=== PATIENT | male | born 1945 | race Caucasian/White ===

== ENCOUNTER → 2017-01-07 09:12 | Outpatient (CLI) | payer MEDICARE, OTHER ==
--- NOTE | 2017-01-21 16:56 | EC ---
PATIENT:NICOLE GODWIN DATE OF SERVICE: 01/07/17 SEX: M MEDICAL RECORD: [id number] DATE OF : 49 LOCATION:D.[facility] AGE OF PATIENT: 71 ADMISSION DATE: 01/07/17 REFERRING PHYSICIAN: INTERPRETING PHYSICIAN: IZABEL ALTAMIRANO MD ECHOCARDIOGRAM REPORT ECHO CHARGES 4 ECHO COMPLETE CLINICAL DIAGNOSIS: DIZZINESS HX OF HTN ECHOCARDIOGRAPHIC MEASUREMENTS (adult normal given) AC root (d.<3.7cm) 3.2 cm LV Septum d (<1.2 cm> 1.2 cm Valve Excursion 1.1 cm LV Septum (systole) 1.7 cm Left Atria (s.<4.0cm> 3.5 cm LVPW d(<1.2cm) 1.2 cm RV (d.<2.3cm) 4.3 cm LVPW (sytole) 1.6 cm LV diastole(<5.6CM) 5.3 cm MV E-F(>70mm/sec) cm LV systole 3.5 cm LVOT Diameter 2.0 cm MV exc.(>10mm) 1.0 cm Est.ejection fraction (50-75%) % Pericardial Effusion N DOPPLER: LVIT cm/sec A 95.0 cm/sec E 75.0 cm/sec LA cm/sec RVSP 22 mmHg LVOT 121 cm/sec AOP1/2T m/s Asc. Ao 166 cm/sec RVOT 76 cm/sec RA cm/sec PA 110 cm/sec AV Gradient Peak 11.07mmHg AV Mean 5.16 mmHg AV Area 2.6 cm MV Gradient Peak 4.67 mmHg MV Mean 1.84 mmHg MV Area cm COMMENTS: Cell Coverer: Murtaza WELLS Makeup Instructor: 1 Dr. Altamirano TAPE# PACS DATE OF SERVICE: 01/07/2017 FINDINGS: 1. Left ventricle chamber size is within normal limits. Left ventricular systolic function is normal. Overall ejection fraction estimated at 60%. 2. Left atrium is within normal limits at 3.5 cm. Right atrium and right ventricle chamber sizes are mildly dilated. 3. Valvular structures have normal structure and motion. 4. Doppler interrogation reveals mild mitral regurgitation, mild tricuspid regurgitation, no other valvular insufficiency or stenosis. Pulmonary systolic ECHOCARDIOGRAM REPORT [id number] NICOLE GODWIN pressure is normal estimated 22 mmHg. 5. No evidence of pericardial effusion or left ventricular thrombus. TRANSINT:[id number] Voice Confirmation ID: [id number] DOCUMENT ID: [id number] IZABEL ALTAMIRANO MD at 1656 CC: [id number] DICTATION DATE: 01/07/17 1135 CHIEF OF HARBOR PATROL: 01/07/17 1201 DEP CLI 01/07/17 [place] [id number] [place] [id number]
== END | disposition home or self-care (01) ==
LOC: D.ECHO 12-28 13:30
DX: R42 Dizziness and giddiness (principal)

== ENCOUNTER 2020-01-11 20:21 | Observation (INO) | payer MEDICARE, OTHER ==
[~2020-01-11] VITALS: Ht 180.3 cm; Wt 90.0 kg
[2020-01-11 21:36] VITALS: BP 154/97
[2020-01-11 21:39] LABS: BASOPHILS 0.2 % (0-2); EOSINOPHILS 3.5 % (0-7); HEMATOCRIT 39.6 % (42.0-54.0); HEMOGLOBIN 12.7 g/dL (13.5-17.5); IMMATURE GRANULOCYTES 0.3 % (0-5); LYMPHOCYTES 21.9 % (15-50); MCH 28.4 pg (26.0-34.0); MCHC 32.1 g/dL (31.0-37.0); MCV 88.6 fL (80.0-100.0); MEAN PLATELET VOLUME 10.8 fL (7.4-10.4); MONOCYTES 7.7 % (2-11); NEUTROPHILS 66.4 % (40-80); PLATELET COUNT 215 10x3/uL (130-400); RBC 4.47 10x6/uL (4.20-6.10); RDW 14.6 % (11.5-14.5); WBC 6.1 10x3/uL (4.8-10.8)
[2020-01-11 21:46] LABS: CALC OSMOLALITY 270 mosm/kg (275-300); CALCIUM 9.2 mg/dL (8.5-10.1); CARBON DIOXIDE 25.5 mmol/L (21.0-32.0); CHLORIDE - SERUM 101 mmol/L (98-107); CREATININE - SERUM 1.1 mg/dL (0.6-1.3); GLUCOSE 84 mg/dL (74-106); POTASSIUM - SERUM 5.3 mmol/L (3.5-5.1); SODIUM 136 mmol/L (136-145); UREA NITROGEN 13 mg/dL (7-18); eGFR NON AFRICAN AMERICAN 70 mL/min (90-120)
[2020-01-11 21:49] LABS: APTT 25.8 SECONDS (22.8-39.4); INR 0.98 (0.85-1.17); PROTIME 12.9 SECONDS (11.6-15.0)
[2020-01-11 22:02] LABS: ALBUMIN 3.5 g/dL (3.4-5.0); ALKALINE PHOSPHATASE 87 U/L (30-120); ALT (SGPT) 10 U/L (10-68); BILIRUBIN - TOTAL 0.51 mg/dL (0.2-1.3); CKMB 0.6 U/L (0.0-3.6); CREATINE KINASE 161 UL (21-232); MAGNESIUM - SERUM 2.1 mg/dL (1.8-2.4)
[2020-01-11 22:04] LABS: TROPONIN-I < 0.017 ng/mL (0.000-0.060)
--- NOTE | 2020-01-11 23:16 | NUR ---
PT TO RADIOLOGY
--- NOTE | 2020-01-11 23:29 | NUR ---
PT RETURNED FROM RADIOLOGY.
[2020-01-12] VITALS (7 sets, daily range): BP systolic 133–155; BP diastolic 69–95; Ht 180.3 cm; Wt 90.0 kg
--- NOTE | 2020-01-12 01:36 | NUR ---
PT GIVEN BLANKET AND HEAD OF BED ADJUSTED TO LEVEL OF COMFORT. DENIES FURTHER NEEDS AT THIS TIME. PT ON MONITOR. CALL LIGHT IN REACH.
[2020-01-12 02:52] LABS: CKMB 0.5 U/L (0.0-3.6); CREATINE KINASE 68 UL (21-232)
[2020-01-12 02:56] LABS: TROPONIN-I < 0.017 ng/mL (0.000-0.060)
--- NOTE | 2020-01-12 03:47 | NUR ---
PT AMBULATED TO RESTROOM INDEPENDENTLY.
--- NOTE | 2020-01-12 04:19 | NUR ---
PT CLOTH FEEDER LIGHT, PT GIVEN CLEAN BRIEF TO PUT ON. DENIES FURTHER NEEDS AT THIS TIME. CALL LIGHT IN REACH.
--- NOTE | 2020-01-12 05:22 | NUR ---
PT AMBULATED TO RESTROOM INDEPENDENTLY.
--- NOTE | 2020-01-12 07:25 | NUR ---
PT REPORT PT FROM SAROJ ALMONTE
[2020-01-12 08:39] LABS: BASOPHILS 0.2 % (0-2); EOSINOPHILS 4.1 % (0-7); HEMATOCRIT 35.8 % (42.0-54.0); HEMOGLOBIN 11.5 g/dL (13.5-17.5); IMMATURE GRANULOCYTES 0.2 % (0-5); MCH 28.3 pg (26.0-34.0); MCHC 32.1 g/dL (31.0-37.0); MEAN PLATELET VOLUME 10.4 fL (7.4-10.4); MONOCYTES 6.7 % (2-11); NEUTROPHILS 68.8 % (40-80); PLATELET COUNT 191 10x3/uL (130-400); RBC 4.07 10x6/uL (4.20-6.10); RDW 14.4 % (11.5-14.5); WBC 4.9 10x3/uL (4.8-10.8)
[2020-01-12 08:49] LABS: % SATURATION 30 % (15-55); IRON 65 ug/dl (35-150); TOTAL IRON BIND CAPACITY 212 ug/dl (260-445); UNSAT IRON BIND CAPACITY 147 ug/dl (150-375)
[2020-01-12 09:13] LABS: CALC OSMOLALITY 275 mosm/kg (275-300); CALCIUM 8.5 mg/dL (8.5-10.1); CARBON DIOXIDE 25.9 mmol/L (21.0-32.0); CHLORIDE - SERUM 105 mmol/L (98-107); CHOL - HDL RATIO 2.6 ratio (2.3-4.9); CHOLESTEROL, TOTAL 134 mg/dL (0-200); CKMB 0.6 U/L (0.0-3.6); CREATINE KINASE 59 UL (21-232); CREATININE - SERUM 1.1 mg/dL (0.6-1.3); FERRITIN 423 ng/mL (3-244); GLUCOSE 87 mg/dL (74-106); HDL CHOLESTEROL 52 mg/dL (32-96); LDH 139 U/L (85-227); LDL CHOLESTEROL 70 mg/dL (0-100); LDL-HDL RATIO 1.3 ratio (1.5-3.5); MAGNESIUM - SERUM 1.8 mg/dL (1.8-2.4); PHOSPHOROUS 2.5 mg/dL (2.5-4.9); PRO BNP 201 pg/mL (0-125); SODIUM 139 mmol/L (136-145); TRIGLYCERIDE 61 mg/dL (30-200); TROPONIN-I < 0.017 ng/mL (0.000-0.060); UREA NITROGEN 10 mg/dL (7-18); eGFR NON AFRICAN AMERICAN 70 mL/min (90-120)
[2020-01-12 09:14] LABS: POTASSIUM - SERUM 3.6 mmol/L (3.5-5.1)
[2020-01-12] MEDS ORDERED: K-DUR20 MEQ PO (09:57)
[2020-01-12] MEDS ORDERED: LISINOPRIL20 MG PO (09:57)
[2020-01-12] MEDS ORDERED: BAYER CHEWABLE81 MG PO (09:57)
[2020-01-12 13:28] LABS: CKMB 0.3 U/L (0.0-3.6); CREATINE KINASE 59 UL (21-232)
[2020-01-12 13:29] LABS: TROPONIN-I < 0.017 ng/mL (0.000-0.060)
--- NOTE | 2020-01-12 17:11 | NUR ---
RECEIVED PT TO ROOM VIA WHEELCHAIR, PT A/O X4, RESP EVEN AND NONLABORED ON RA. LT AC INFUSING NS AT 75CC/HR. PT DENIES ANY PAIN AT THIS TIME. ORIENTED PT TO ROOM AND CALL LIGHT, WILL ASSESS PT AND START PLAN OF CARE.
--- NOTE | 2020-01-12 20:00 | NUR ---
INITIAL ROUNDS AND ASSESSMENT COMPLETED. PT RESTING IN BED. NONLABORED RESPIRATIONS ON ROOM AIR. SR PER TELEMETRY. PIV TO LEFT A/C WITH NS @ 75ML/HR INFUSING. REQUESTED O2 @ 2L/NC BE HOOKED UP FOR WHEN HE IS FEELING SOB. O2 NOW AT BEDSIDE FOR HIS USE. CALL LIGHT IN REACH. CPOC.
[2020-01-13 00:30] VITALS: BP 142/83
--- NOTE | 2020-01-13 01:44 | NUR ---
IV PROTONIX ADMINISTERED. PT RESTING WITH NO DISTRESS. CPOC.
[2020-01-13 04:30] VITALS: BP 159/87
[2020-01-13 05:28] LABS: BASOPHILS 0.2 % (0-2); EOSINOPHILS 3.9 % (0-7); HEMATOCRIT 37.8 % (42.0-54.0); HEMOGLOBIN 11.8 g/dL (13.5-17.5); IMMATURE GRANULOCYTES 0.4 % (0-5); MCH 27.9 pg (26.0-34.0); MCHC 31.2 g/dL (31.0-37.0); MCV 89.4 fL (80.0-100.0); MEAN PLATELET VOLUME 10.5 fL (7.4-10.4); MONOCYTES 8.1 % (2-11); NEUTROPHILS 67.4 % (40-80); PLATELET COUNT 191 10x3/uL (130-400); RBC 4.23 10x6/uL (4.20-6.10); RDW 14.7 % (11.5-14.5); WBC 5.4 10x3/uL (4.8-10.8)
[2020-01-13 05:55] LABS: CALC OSMOLALITY 280 mosm/kg (275-300); CALCIUM 8.5 mg/dL (8.5-10.1); CARBON DIOXIDE 27.3 mmol/L (21.0-32.0); CHLORIDE - SERUM 107 mmol/L (98-107); GLUCOSE 93 mg/dL (74-106); MAGNESIUM - SERUM 2.1 mg/dL (1.8-2.4); POTASSIUM - SERUM 3.5 mmol/L (3.5-5.1); SODIUM 142 mmol/L (136-145); UREA NITROGEN 8 mg/dL (7-18); eGFR NON AFRICAN AMERICAN 78 mL/min (90-120)
[2020-01-13 05:56] LABS: PHOSPHOROUS 3.3 mg/dL (2.5-4.9)
[2020-01-13 08:34] VITALS: BP 143/74
--- NOTE | 2020-01-13 09:16 | NUR ---
AM MEDS GIVEN AT THIS TIME. WENT OVER PLAN OF CARE WITH PT, DENIES ANY NEEDS AT THIS TIME. PT A/O X4, RESP EVEN AND NONLABORED ON RA. LT AC IV INFUSING NS AT 75CC/HR. CALL LIGHT IN REACH, WILL CONTINUE PLAN OF CARE.
--- NOTE | 2020-01-13 09:32 | NUR ---
UPDATED PT'S , ABOUT PLAN OF CARE.
[2020-01-13 12:11] VITALS: BP 135/77
[2020-01-13] MEDS ORDERED: MUCINEX600 MG PO (12:19)
[2020-01-13] MEDS ORDERED: LISINOPRIL10 MG PO (12:19)
[2020-01-13] MEDS ORDERED: TESSALON PERLE100 MG PO (12:19)
--- NOTE | 2020-01-13 14:06 | NUR ---
PROVIDED VERBAL AND WRITTEN DISCHARGE TEACHING TO PT WHO VERBALIZED UNDERSTANDING REGARDING TEACHING. D/C LT AC IV WITH CATHETER TIP INTACT. HEART MONITOR REMOVED AND TAKEN TO SALVAGE REPAIRER. PT LEFT UNIT VIA WHEELCHAIR, WITH CALL BELONGINGS, NAD NOTED.
== END 2020-01-13 14:14 | disposition home or self-care (01) ==
LOC: D.ER 20:21 → D.EDHOLD 01-12 03:32 → OBSVTIME 01-12 03:32 → D.EDHOLD 01-12 03:32 → D.M2 01-12 03:32
PROVIDERS: Family Medicine; ADMIT Family Medicine; ATTEND Family Medicine
DX: R55 Syncope and collapse (principal); R07.9 Chest pain, unspecified; I10 Essential (primary) hypertension; D64.9 Anemia, unspecified; K59.00 Constipation, unspecified; J98.11 Atelectasis; R00.1 Bradycardia, unspecified

== ENCOUNTER 2020-01-16 21:58 | Emergency (ER) | payer MEDICARE, OTHER ==
[~2020-01-16] VITALS: Ht 180.3 cm; Wt 88.6 kg
[~2020-01-16 21:58] MED LIST: BAYER CHEWABLE81 MG PO; K-DUR20 MEQ PO; LISINOPRIL10 MG PO; LISINOPRIL20 MG PO; MUCINEX600 MG PO; TESSALON PERLE100 MG PO
[2020-01-16 22:12] VITALS: Ht 180.3 cm; Wt 88.6 kg
[2020-01-16 22:57] LABS: BILIRUBIN NEGATIVE (NEGATIVE); KETONE NEGATIVE (NEGATIVE); NITRITE NEGATIVE (NEGATIVE); UROBILINOGEN NORMAL mg/dL (< 2)
[2020-01-16 22:58] LABS: BASOPHILS 0.2 % (0-2); EOSINOPHILS 3.9 % (0-7); HEMATOCRIT 37.8 % (42.0-54.0); HEMOGLOBIN 12.2 g/dL (13.5-17.5); IMMATURE GRANULOCYTES 0.2 % (0-5); LYMPHOCYTES 19.6 % (15-50); MCH 28.6 pg (26.0-34.0); MCHC 32.3 g/dL (31.0-37.0); MCV 88.5 fL (80.0-100.0); MEAN PLATELET VOLUME 10.2 fL (7.4-10.4); MONOCYTES 9.5 % (2-11); NEUTROPHILS 66.6 % (40-80); PLATELET COUNT 194 10x3/uL (130-400); RBC 4.27 10x6/uL (4.20-6.10); RDW 14.6 % (11.5-14.5); WBC 4.6 10x3/uL (4.8-10.8)
[2020-01-16 23:11] LABS: CALC OSMOLALITY 276 mosm/kg (275-300); CALCIUM 8.9 mg/dL (8.5-10.1); CARBON DIOXIDE 30.3 mmol/L (21.0-32.0); CHLORIDE - SERUM 103 mmol/L (98-107); CREATININE - SERUM 1.1 mg/dL (0.6-1.3); GLUCOSE 94 mg/dL (74-106); INR 1.02 (0.85-1.17); POTASSIUM - SERUM 3.5 mmol/L (3.5-5.1); PROTIME 13.3 SECONDS (11.6-15.0); SODIUM 140 mmol/L (136-145); UREA NITROGEN 6 mg/dL (7-18); eGFR NON AFRICAN AMERICAN 70 mL/min (90-120)
[2020-01-16 23:27] LABS: ALBUMIN 3.3 g/dL (3.4-5.0); ALKALINE PHOSPHATASE 92 U/L (30-120); ALT (SGPT) 14 U/L (10-68); CKMB 0.7 U/L (0.0-3.6); CREATINE KINASE 88 UL (21-232); PROTEIN - SERUM 7.6 g/dL (6.4-8.2); TROPONIN-I < 0.017 ng/mL (0.000-0.060)
[2020-01-16] MEDS ORDERED: KLONOPIN0.5 MG PO (23:34)
[2020-01-16 23:56] VITALS: BP 144/76
== END 2020-01-16 23:56 | disposition home or self-care (01) ==
LOC: D.ER 21:58
PROVIDERS: Family Medicine
DX: F41.9 Anxiety disorder, unspecified (principal); R06.02 Shortness of breath; I10 Essential (primary) hypertension; R42 Dizziness and giddiness; R10.30 Lower abdominal pain, unspecified